=== PATIENT | male | born 1995 | race Caucasian/White ===

== ENCOUNTER 2019-10-31 13:16 | Emergency (ER) | payer SELFPAY ==
[~2019-10-31] VITALS: Ht 172.7 cm; Wt 85.9 kg
[2019-10-31 13:20] VITALS: BP 159/109
--- NOTE | 2019-10-31 13:25 | NUR ---
PT IN ER LOBBY
[2019-10-31] MEDS ORDERED: AMOX500C25 PO (13:48)
[2019-10-31] MEDS ORDERED: HYDR-5123 PO (13:48)
--- NOTE | 2019-10-31 13:56 | NUR ---
Patient taken to CT scan via wheelchair by tech.
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
--- NOTE | 2019-10-31 14:30 | NUR ---
Dr. Moreno is evaluating the patient at bedside.
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
[2019-10-31 15:38] VITALS: BP 159/109
--- NOTE | 2019-10-31 15:39 | NUR ---
Patient discharged with v/s stable. Written and verbal after care instructions given and explained. Patient verbalized understanding. Ambulatory with steady gait. All questions addressed prior to discharge. Advised to follow up with PMD.
== END 2019-10-31 15:39 | disposition home or self-care (01) ==
LOC: MED 13:16
DX: S02.642A Fracture of ramus of left mandible, initial encounter for closed fracture (principal); Y08.89XA Assault by other specified means, initial encounter; Y93.89 Activity, other specified; Y92.89 Other specified places as the place of occurrence of the external cause; Y99.8 Other external cause status
CPT/HCPCS: 70450; 70486; 99285

== ENCOUNTER 2020-04-20 06:15 | Emergency (ER) | payer OTHER ==
[~2020-04-20] VITALS: Ht 177.8 cm; Wt 72.6 kg
[~2020-04-20 06:15] MED LIST: AMOX500C25 PO; HYDR-5123 PO
--- NOTE | 2020-04-20 06:15 | NUR ---
PT MENG FRENCH, PREBOOK. TAKEN TO CHAIR
--- NOTE | 2020-04-20 06:21 | NUR ---
PT REFUSING VITAL SIGNS, REFUSING ALL MEDICAL CARE. UNABLE TO TRAIGE.
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
== END 2020-04-20 06:40 ==
LOC: MED 06:15
DX: Z04.3 Encounter for examination and observation following other accident (principal); Z02.89 Encounter for other administrative examinations; Z79.899 Other long term (current) drug therapy
CPT/HCPCS: 99283